=== PATIENT | female | born 1985 | race Two or more races ===

== ENCOUNTER 2020-11-02 09:27 | Inpatient (IN) | payer OTHER ==
[~2020-11-02] VITALS: Ht 160 cm; Wt 1.8 kg
[2020-11-02] MEDS ORDERED: PRENATAL TABLE1 EAC1 PO (13:16)
[2020-11-02] MEDS ORDERED: IRON325 MG PO (13:16)
[2020-11-03] MEDS ORDERED: INTEGRA F CAPS1 EAC1 (11:30)
== END 2020-11-07 13:23 | disposition home or self-care (01) | DRG 788 ==
LOC: LDR 09:27 → O/R 11-04 14:33 → LDR 11-05 02:22 → OB/GYN 11-05 11:35 → SURG-SUITE 11-05 15:40
PROVIDERS: ADMIT Obstetrics & Gynecology; ATTEND Obstetrics & Gynecology
PROC: 4A1HXFZ Monitoring of Products of Conception, Cardiac Rhythm, External Approach (ICD-10-PCS; 2020-11-02)
PROC: 3E0P7VZ Introduction of Hormone into Female Reproductive, Via Natural or Artificial Opening (ICD-10-PCS; 2020-11-03)
PROC: 3E033VJ Introduction of Other Hormone into Peripheral Vein, Percutaneous Approach (ICD-10-PCS; 2020-11-03)
PROC: 10D00Z1 Extraction of Products of Conception, Low, Open Approach (ICD-10-PCS; principal; 2020-11-04 15:15)
DX: O61.0 Failed medical induction of labor (principal); O14.14 Severe pre-eclampsia complicating childbirth; O13.4 Gestational [pregnancy-induced] hypertension without significant proteinuria, complicating childbirth; Z3A.35 35 weeks gestation of pregnancy; Z37.0 Single live birth; Z20.822 Contact with and (suspected) exposure to COVID-19

== ENCOUNTER 2024-02-14 13:06 | Outpatient (CLI) | payer OTHER ==
[~2024-02-14 13:06] MED LIST: INTEGRA F CAPS1 EAC1; IRON325 MG PO; PRENATAL TABLE1 EAC1 PO
== END 2024-02-14 14:51 | disposition home or self-care (01) ==
LOC: NST 13:06
PROVIDERS: ATTEND Obstetrics & Gynecology Maternal & Fetal Medicine
DX: Z34.83 Encounter for supervision of other normal pregnancy, third trimester (principal)

== ENCOUNTER 2024-03-07 12:36 | Outpatient (CLI) | payer OTHER | END 2024-03-07 13:33 | disposition home or self-care (01) | LOC: NST 12:36 | PROVIDERS: ATTEND Obstetrics & Gynecology Gynecology | DX: Z34.83 Encounter for supervision of other normal pregnancy, third trimester (principal) ==

== ENCOUNTER 2024-03-22 12:15 | Inpatient (IN) | payer OTHER ==
[~2024-03-22] VITALS: Ht 160 cm; Wt 101.6 kg
[2024-03-22] MEDS ORDERED: SYNTHROID150 MCG PO (13:25)
[2024-03-22 13:51] LABS: HEMATOCRIT 33.4 % (36.0-45.00); HEMOGLOBIN 11.3 g/dL (12.0-15.00); MEAN CELL VOLUME 82.8 fL (80.00-100.00); MEAN CORPUSCULAR HEMOGLOBIN 27.9 pg (27.00-32.0); MEAN CORPUSCULAR HGB CONC 33.7 g/dl (32.0-36.0); PLATELET COUNT 284 K/uL (150-450); RED BLOOD COUNT 4.04 M/uL (4.00-6.00); RED CELL DISTRIBUTION WIDTH 13.9 % (11.5-14.5)
[2024-03-22 14:25] LABS: INR 0.94; PARTIAL THROMBOPLASTIN TIME 25.6 SECONDS (22.0-34.0); PROTHROMBIN TIME 10.3 SECONDS (9.0-11.5)
[2024-03-22 14:35] LABS: ALBUMIN 2.6 gm/dL (3.4-5.0); BILIRUBIN TOTAL 0.25 mg/dL (0.3-1.2); CALCIUM 9.3 mg/dL (8.5-10.1); CREATININE SERUM 0.58 mg/dL (0.55-1.02); GFR 116.34; GLOBULINA 4.3 G/DL (2.4-3.5); POTASSIUM 4.19 mEq/L (3.5-5.1); TOTAL PROTEIN 6.9 gm/dL (6.4-8.2)
[2024-03-23 04:20] VITALS: BP 119/78
[2024-03-23] MEDS ORDERED: RINGERS SOLUTION,LACTATED 1,000 ML IV SCH ×2 (05:00→16:00)
[2024-03-23] MEDS ORDERED: TERBUTALINE SULFATE 1 MG/ML AMPUL SUBCUTANEO ONE (05:00)
[2024-03-23 07:37] VITALS: BP 112/72
[2024-03-23] MEDS ORDERED: CEFOXITIN SODIUM 2,000 MG VIAL IV SCH (08:45)
[2024-03-23] MEDS ORDERED: CITRIC ACID/SODIUM CITRATE 30 ML BLIST.PACK PO SCH (08:45)
[2024-03-23] MEDS ORDERED: ERYTHROMYCIN BASE OPHT 1GM EACH TUBE OP ONE (08:51)
[2024-03-23] MEDS ORDERED: OXYTOCIN 10 UNITS/ML VIAL ONE ×2 (08:51→11:40)
[2024-03-23] MEDS ORDERED: KETOROLAC TROMETHAMINE 30 MG VIAL ONE (11:41)
[2024-03-23] MEDS ORDERED: KETOROLAC TROMETHAMINE 30 MG VIAL IM ONE (12:00)
[2024-03-23] MEDS ORDERED: KETOROLAC TROMETHAMINE 30 MG VIAL IM NR (12:30)
[2024-03-23 14:39] VITALS: BP 125/79
[2024-03-23 15:00] VITALS: BP 125/79
[2024-03-23] MEDS ORDERED: MEPERIDINE HCL/PF 50 MG/ML VIAL IM PRN (16:00)
[2024-03-23] MEDS ORDERED: PROMETHAZINE HCL 25 MG/ML AMPUL IM PRN (16:00)
[2024-03-23] MEDS ORDERED: OXYTOCIN 40 UNITS in RINGERS SOLUTION,LACTATED 1,000 ML IV SCH (16:00)
[2024-03-23 16:47] LABS: HEMATOCRIT 34.1 % (36.0-45.00); HEMOGLOBIN 11.4 g/dL (12.0-15.00); MEAN CELL VOLUME 82.4 fL (80.00-100.00); MEAN CORPUSCULAR HEMOGLOBIN 27.5 pg (27.00-32.0); MEAN CORPUSCULAR HGB CONC 33.4 g/dl (32.0-36.0); PLATELET COUNT 249 K/uL (150-450); RED BLOOD COUNT 4.13 M/uL (4.00-6.00); RED CELL DISTRIBUTION WIDTH 13.9 % (11.5-14.5)
[2024-03-23] MEDS ORDERED: SIMETHICONE 125 MG CAPSULE PO SCH (17:00)
[2024-03-23] MEDS ORDERED: CEFAZOLIN SODIUM 1,000 MG VIAL IV SCH (17:00)
[2024-03-23] MEDS ORDERED: KETOROLAC TROMETHAMINE 10 MG TABLET PO SCH (18:00)
[2024-03-24 01:00] VITALS: BP 128/80
[2024-03-24 07:42] LABS: HEMATOCRIT 30.3 % (36.0-45.00); HEMOGLOBIN 10.1 g/dL (12.0-15.00); MEAN CORPUSCULAR HEMOGLOBIN 27.7 pg (27.00-32.0); MEAN CORPUSCULAR HGB CONC 33.3 g/dl (32.0-36.0); PLATELET COUNT 234 K/uL (150-450); RED BLOOD COUNT 3.65 M/uL (4.00-6.00); RED CELL DISTRIBUTION WIDTH 13.7 % (11.5-14.5)
[2024-03-24 11:23] VITALS: BP 123/80
[2024-03-24] MEDS ORDERED: OxyCODONE HCL/APAP UD (PERCOCET) PO SCH (13:00)
[2024-03-24 15:14] VITALS: BP 117/78
[2024-03-25 01:00] VITALS: BP 117/78
[2024-03-25] MEDS ORDERED: OXYC1TAB9 PO (08:00)
[2024-03-25] MEDS ORDERED: KETO10TA2 PO (08:00)
[2024-03-25 08:50] VITALS: BP 110/70
== END 2024-03-25 15:11 | disposition home or self-care (01) | DRG 785 ==
LOC: LDR 03-23 04:39 → OB/GYN 03-23 04:39
PROVIDERS: Obstetrics & Gynecology Maternal & Fetal Medicine; ADMIT Obstetrics & Gynecology; ATTEND Obstetrics & Gynecology
PROC: 0UB70ZZ Excision of Bilateral Fallopian Tubes, Open Approach (ICD-10-PCS; 2024-03-23)
PROC: 4A1HXCZ Monitoring of Products of Conception, Cardiac Rate, External Approach (ICD-10-PCS; 2024-03-23)
PROC: 10D00Z1 Extraction of Products of Conception, Low, Open Approach (ICD-10-PCS; principal; 2024-03-23 08:00)
DX: O34.211 Maternal care for low transverse scar from previous cesarean delivery (principal); Z30.2 Encounter for sterilization; Z37.0 Single live birth; Z20.822 Contact with and (suspected) exposure to COVID-19; Z3A.38 38 weeks gestation of pregnancy